=== PATIENT | female | born 1960 | race Native Hawaiian/Other Pacific Islander ===

== ENCOUNTER 2017-01-24 13:34 | Outpatient (CLI) | payer OTHER ==
[~2017-01-24 13:34] MED LIST: ALBU0.5N6 INH; ALLO100T22 PO; ASPIRIN LOW STR81 MG PO; BUDE1AER5 INH; BUMETANIDE1 MG PO; BUSPIRONE10 MG PO; CADUET10 MG/10 M PO; CALC500T57 PO; CARV12.5 PO; CARV25TA PO; CETI10TA PO; CLARITIN10 MG PO; CLINDAMYCIN300 MG PO; CLON1TAB18 PO; DIVA500T2 PO; FEMRING0.05 MG/24 PO; FLUO10CA2 PO; FLUOXETINE20 M2 PO; FUROSEMIDE40 MG PO; GABA300C2 PO; GLIP10TA55 PO; HORIZANT300 MG PO; HYDR10TA47A PO; HYDR25CA25 PO; INSU100P SC; LEVO0.0723 PO; LIPITOR40 MG PO; LOFIBRA54 MG PO; MECLIZINE25 MG OR; METAMUCIL0.52 GM PO; METFTAB PO; METO50TA27 PO; METO5TAB38 PO; NOVOLIN N1 ML SC; NOVOLOG SC; OMEPRAZOLE20 M1 PO; PANT40TA PO; ROBAXIN500 MG PO; SERT100T PO; SIMV20TA2 PO; SPIRONOLACT25 MG PO; SYMBICORT1 AE1 INH; TRAMADOL HCL100 M1 PO; VITAMIN D31000 UNIT OR; WARFARIN5 MG PO
== END 2017-01-24 19:05 | disposition home or self-care (01) ==
LOC: MRI 13:34
DX: R47.81 Slurred speech (principal); R29.2 Abnormal reflex; R26.89 Other abnormalities of gait and mobility; R29.6 Repeated falls

== ENCOUNTER 2017-05-27 13:02 | Outpatient (CLI) | payer OTHER | END 2017-05-27 19:24 | disposition home or self-care (01) | LOC: RAD 13:02 | DX: R06.02 Shortness of breath (principal); I25.10 Atherosclerotic heart disease of native coronary artery without angina pectoris ==

== ENCOUNTER 2017-10-01 12:15 | Outpatient (CLI) | payer OTHER ==
[2017-10-01 12:53] LABS: PLATELET COUNT 165 K/uL (152-353)
[2017-10-01 14:13] LABS: POTASSIUM 3.8 mmol/L (3.6-5.2)
== END 2017-10-01 21:42 | disposition home or self-care (01) ==
LOC: LABW 12:15
PROVIDERS: Internal Medicine
DX: N18.3 Chronic kidney disease, stage 3 (moderate) (principal); R79.89 Other specified abnormal findings of blood chemistry
CPT/HCPCS: 36415; 80053; 82570; 82985; 84100; 84155; 84550; 85027

== ENCOUNTER 2017-11-21 15:07 | Outpatient (CLI) | payer OTHER | END 2017-11-21 19:23 | disposition home or self-care (01) | LOC: CT 15:07 | DX: R31.0 Gross hematuria (principal) ==

== ENCOUNTER 2018-02-07 20:22 | Observation (INO) | payer OTHER ==
[~2018-02-07] VITALS: Ht 152.4 cm; Wt 100.7 kg
[2018-02-07 20:41] VITALS: BP 124/87; TEMP 98.6
[2018-02-07 23:03] LABS: POTASSIUM 3.5 mmol/L (3.6-5.2)
[2018-02-07 23:17] LABS: PLATELET COUNT 173 K/uL (152-353)
[2018-02-08] VITALS (8 sets, daily range): BP systolic 101–134; BP diastolic 45–83; TEMP 97.7–98.3; Ht 152.4 cm; Wt 100.7 kg
[2018-02-08] MEDS ORDERED: PRIMIDONE50 M1 PO (00:54)
[2018-02-08] MEDS ORDERED: LEVEMIR SC ×2 (00:55→00:56)
[2018-02-08] MEDS ORDERED: METO5TAB38 PO (00:55)
[2018-02-08] MEDS ORDERED: NITR0.4S2 SL (00:56)
[2018-02-08] MEDS ORDERED: [UNRECOGNIZED DRUG - OTHER] PO (00:57)
[2018-02-08] MEDS ORDERED: IBUPROFEN IB200 MG PO (00:58)
[2018-02-09 04:00] VITALS: BP 96/57; TEMP 98.1
[2018-02-09 05:16] LABS: PLATELET COUNT 163 K/uL (152-353)
[2018-02-09 05:45] LABS: POTASSIUM 3.3 mmol/L (3.6-5.2)
[2018-02-09 07:52] VITALS: BP 91/56; TEMP 98.1
== END 2018-02-09 11:00 | disposition home or self-care (01) ==
LOC: ED 20:22 → MED/SURG 02-08 00:57
PROVIDERS: ADMIT Specialist
DX: E11.65 Type 2 diabetes mellitus with hyperglycemia (principal); R49.22 Hyponasality; G25.2 Other specified forms of tremor; E87.6 Hypokalemia
CPT/HCPCS: 36415; 80048; 80053; 80164; 81000; 82948; 83735; 84100; 85027; 96361; 96372; 96374; 99220; 99284; G0378; J1815

== ENCOUNTER 2018-07-22 14:23 | Outpatient (CLI) | payer OTHER ==
[~2018-07-22 14:23] MED LIST changes: +IBUPROFEN IB200 MG PO; +LEVEMIR SC; +NITR0.4S2 SL; +PRIMIDONE50 M1 PO; +[UNRECOGNIZED DRUG - OTHER] PO
== END 2018-07-22 14:28 | disposition short-term general hospital (02) ==
LOC: AMB 14:23
DX: G25.0 Essential tremor (principal)
CPT/HCPCS: A0425; A0429

== ENCOUNTER 2018-07-22 14:30 | Emergency (ER) | payer OTHER ==
[~2018-07-22] VITALS: Ht 152.4 cm; Wt 99.8 kg
[2018-07-22 16:30] VITALS: TEMP 97.6
[2018-07-22 16:31] LABS: PLATELET COUNT 214 K/uL (152-353)
[2018-07-22 16:45] LABS: POTASSIUM 3.6 mmol/L (3.6-5.2)
[2018-07-22 18:52] VITALS: BP 127/88
== END 2018-07-22 18:56 | disposition home or self-care (01) ==
LOC: ED 14:30
PROVIDERS: Family Medicine
DX: R25.1 Tremor, unspecified (principal); R73.9 Hyperglycemia, unspecified; W18.39XA Other fall on same level, initial encounter; Y92.481 Parking lot as the place of occurrence of the external cause
CPT/HCPCS: 36415; 80053; 81000; 82962; 85027; 96372; 99283

== ENCOUNTER 2019-02-12 17:20 | Outpatient (CLI) | payer OTHER ==
[2019-02-12 18:57] LABS: PLATELET COUNT 283 K/uL (152-353)
[2019-02-12 19:21] LABS: POTASSIUM 3.8 mmol/L (3.6-5.2)
== END 2019-02-12 21:10 | disposition home or self-care (01) ==
LOC: LABW 17:20
PROVIDERS: Internal Medicine Gastroenterology
DX: E72.20 Disorder of urea cycle metabolism, unspecified (principal)
CPT/HCPCS: 36415; 80053; 80074; 82103; 82248; 82390; 82525; 82728; 83516; 83540; 83550; 85027; 85610; 86038

== ENCOUNTER 2019-02-16 17:27 | Outpatient (CLI) | payer OTHER | END 2019-02-16 19:32 | disposition home or self-care (01) | LOC: LAB 17:27 | DX: E72.20 Disorder of urea cycle metabolism, unspecified (principal) | CPT/HCPCS: 36415; 82140 ==

== ENCOUNTER 2019-02-18 10:20 | Day surgery (SDC) | payer OTHER | END 2019-02-18 13:45 | disposition home or self-care (01) | LOC: OR 10:20 | PROC: 0DB68ZZ Excision of Stomach, Via Natural or Artificial Opening Endoscopic (ICD-10-PCS; principal; 2019-02-18) | DX: K21.0 Gastro-esophageal reflux disease with esophagitis (principal); K44.9 Diaphragmatic hernia without obstruction or gangrene; K29.50 Unspecified chronic gastritis without bleeding; R10.13 Epigastric pain; R16.0 Hepatomegaly, not elsewhere classified; K25.9 Gastric ulcer, unspecified as acute or chronic, without hemorrhage or perforation; K92.1 Melena | CPT/HCPCS: J1815; J2001; J2405; J2704 ==

== ENCOUNTER 2019-03-04 10:29 | Day surgery (SDC) | payer OTHER | END 2019-03-04 14:18 | disposition home or self-care (01) | LOC: OR 10:29 | PROC: 0DBL8ZZ Excision of Transverse Colon, Via Natural or Artificial Opening Endoscopic (ICD-10-PCS; principal; 2019-03-04) | PROC: 0DBP8ZZ Excision of Rectum, Via Natural or Artificial Opening Endoscopic (ICD-10-PCS; 2019-03-04) | DX: K62.1 Rectal polyp (principal); D12.3 Benign neoplasm of transverse colon; K57.30 Diverticulosis of large intestine without perforation or abscess without bleeding; K64.8 Other hemorrhoids; Z12.11 Encounter for screening for malignant neoplasm of colon | CPT/HCPCS: J2001; J2250; J2405; J2704 ==

== ENCOUNTER 2019-03-22 07:01 | Emergency (ER) | payer OTHER ==
[~2019-03-22] VITALS: Ht 152.4 cm; Wt 104.8 kg
[2019-03-22] MEDS ORDERED: FURO20TA67 PO ×2 (07:24)
[2019-03-22] MEDS ORDERED: TIROSINT88 MCG PO ×2 (07:25)
[2019-03-22] MEDS ORDERED: METO5TAB38 PO ×2 (07:26)
[2019-03-22] MEDS ORDERED: K-TAB20 MEQ PO ×2 (07:27)
[2019-03-22 08:43] LABS: PLATELET COUNT 227 K/uL (152-353)
[2019-03-22 08:51] LABS: POTASSIUM 3.9 mmol/L (3.6-5.2)
[2019-03-22 11:15] VITALS: BP 162/79; TEMP 98.1
== END 2019-03-22 11:19 | disposition home or self-care (01) ==
LOC: ED 07:01
PROVIDERS: Emergency Medicine
DX: S32.018A Other fracture of first lumbar vertebra, initial encounter for closed fracture (principal); S32.028A Other fracture of second lumbar vertebra, initial encounter for closed fracture; E11.65 Type 2 diabetes mellitus with hyperglycemia; Z79.4 Long term (current) use of insulin
CPT/HCPCS: 80053; 85027; 96372; 99283; J1815; J1885

== ENCOUNTER 2019-03-24 03:35 | Inpatient (IN) | payer OTHER ==
[~2019-03-24] VITALS: Ht 152.4 cm; Wt 104.4 kg
[~2019-03-24 03:35] MED LIST changes: +FURO20TA67 PO; +K-TAB20 MEQ PO; +TIROSINT88 MCG PO
[2019-03-24 03:52] VITALS: BP 107/63; TEMP 98.3
[2019-03-24 04:40] LABS: PLATELET COUNT 330 K/uL (152-353)
[2019-03-24 04:55] LABS: POTASSIUM 4.2 mmol/L (3.6-5.2); SODIUM 139 mmol/L (136-145)
[2019-03-24] MEDS ORDERED: TRESIBA100 UNIT/M SC ×2 (08:23)
[2019-03-24 20:00] VITALS: BP 121/73; TEMP 98.6
[2019-03-24 20:44] VITALS: BP 134/73; TEMP 99; Ht 152.4 cm; Wt 104.4 kg
[2019-03-25] VITALS: BP 126/68; TEMP 97.8
[2019-03-25 04:00] VITALS: BP 107/55; TEMP 97.9
[2019-03-25 08:00] VITALS: BP 115/58; TEMP 98
[2019-03-25 12:00] VITALS: BP 151/58; TEMP 98.3
== END 2019-03-25 14:45 | disposition short-term general hospital (02) | DRG 682 ==
LOC: ED 03:35 → MED/SURG 07:55
PROVIDERS: Student in an Organized Health Care Education/Training Program; ADMIT Internal Medicine
DX: N17.8 Other acute kidney failure (principal); I50.21 Acute systolic (congestive) heart failure; I13.2 Hypertensive heart and chronic kidney disease with heart failure and with stage 5 chronic kidney disease, or end stage renal disease; J44.1 Chronic obstructive pulmonary disease with (acute) exacerbation; E87.2 Acidosis; N18.5 Chronic kidney disease, stage 5; E11.22 Type 2 diabetes mellitus with diabetic chronic kidney disease; I25.10 Atherosclerotic heart disease of native coronary artery without angina pectoris; Z86.711 Personal history of pulmonary embolism; Z86.73 Personal history of transient ischemic attack (TIA), and cerebral infarction without residual deficits; M10.9 Gout, unspecified; E11.42 Type 2 diabetes mellitus with diabetic polyneuropathy; E03.8 Other specified hypothyroidism; F41.8 Other specified anxiety disorders; K29.00 Acute gastritis without bleeding
CPT/HCPCS: 36415; 80048; 82947; 83735; 83880; 84484; 85027; 93005; 94640; 94664; 94760; 96360; 96365; 96366; 96374; 96375; 99284; J1650; J1815; J2930; J3475

== ENCOUNTER 2019-03-25 14:48 | Outpatient (CLI) | payer OTHER ==
[~2019-03-25 14:48] MED LIST changes: +TRESIBA100 UNIT/M SC
== END 2019-03-25 16:05 | disposition short-term general hospital (02) ==
LOC: AMB 14:48
DX: N19 Unspecified kidney failure (principal); J44.9 Chronic obstructive pulmonary disease, unspecified
CPT/HCPCS: A0425; A0429

== ENCOUNTER 2019-05-19 23:05 | Emergency (ER) | payer OTHER ==
[~2019-05-19] VITALS: Ht 152.4 cm; Wt 104.3 kg
[2019-05-20 00:35] LABS: PLATELET COUNT 443 K/uL (152-353)
[2019-05-20 01:38] LABS: POTASSIUM 3.8 mmol/L (3.6-5.2); SODIUM 139 mmol/L (136-145)
[2019-05-20 02:03] LABS: PARTIAL THROMBOPLASTIN TIME 24.7 SECONDS (24.5-33.6)
[2019-05-20 02:08] VITALS: BP 139/72; TEMP 97.9
== END 2019-05-20 02:08 | disposition home or self-care (01) ==
LOC: ED 23:05
PROVIDERS: Hospitalist
DX: K31.84 Gastroparesis (principal); E11.43 Type 2 diabetes mellitus with diabetic autonomic (poly)neuropathy; R11.2 Nausea with vomiting, unspecified; Z79.4 Long term (current) use of insulin; I50.9 Heart failure, unspecified; R00.0 Tachycardia, unspecified
CPT/HCPCS: 36415; 80053; 82150; 82550; 83690; 84484; 85027; 85610; 85730; 93005; 96365; 96375; 99284; J2405

== ENCOUNTER 2019-05-20 11:20 | Outpatient (CLI) | payer OTHER | END 2019-05-20 11:29 | disposition short-term general hospital (02) | LOC: AMB 11:20 | DX: R11.2 Nausea with vomiting, unspecified (principal); F41.8 Other specified anxiety disorders; N19 Unspecified kidney failure | CPT/HCPCS: A0425; A0429 ==

== ENCOUNTER 2019-05-20 11:34 | Emergency (ER) | payer OTHER ==
[~2019-05-20] VITALS: Ht 152.4 cm; Wt 102.5 kg
[2019-05-20 11:34] VITALS: TEMP 97.5
[2019-05-20 12:58] VITALS: BP 137/72
== END 2019-05-20 12:59 | disposition home or self-care (01) ==
LOC: ED 11:34
DX: K31.84 Gastroparesis (principal); E11.43 Type 2 diabetes mellitus with diabetic autonomic (poly)neuropathy; Z79.4 Long term (current) use of insulin; R11.2 Nausea with vomiting, unspecified; K21.9 Gastro-esophageal reflux disease without esophagitis
CPT/HCPCS: 96372; 99283; J2405; J2765

== ENCOUNTER 2019-12-03 14:01 | Outpatient (CLI) | payer OTHER | END 2019-12-03 14:26 | disposition short-term general hospital (02) | LOC: AMB 14:01 | DX: R53.1 Weakness (principal); W18.39XA Other fall on same level, initial encounter; Y92.89 Other specified places as the place of occurrence of the external cause | CPT/HCPCS: A0425; A0429 ==

== ENCOUNTER 2021-07-06 11:55 | Outpatient (CLI) | payer OTHER ==
[2021-07-06 12:11] LABS: PLATELET COUNT 223 K/uL (152-353)
[2021-07-06 13:10] LABS: POTASSIUM 3.9 mmol/L (3.6-5.2)
== END 2021-07-06 20:13 | disposition home or self-care (01) ==
LOC: LABW 11:55
PROVIDERS: ATTEND Internal Medicine
DX: I12.9 Hypertensive chronic kidney disease with stage 1 through stage 4 chronic kidney disease, or unspecified chronic kidney disease (principal); N18.30 Chronic kidney disease, stage 3 unspecified
CPT/HCPCS: 36415; 80048; 82040; 84100; 84550; 85027